=== PATIENT | female | born 1990 | race Hispanic/Latino ===

== ENCOUNTER 2018-07-05 23:51 | Emergency (ER) | payer SELFPAY ==
[2018-07-06] MEDS ORDERED: Metoprolol Tartrate 5 MG/5 ML VIAL ONE (00:43)
[2018-07-06 01:09] LABS: #Eosinphils 0.2 thou/uL (0.0-0.7); #Monocytes 0.4 thou/uL (0.11-0.59); #Neutrophils 4.6 thou/uL (1.40-6.50); %Eosinophils 2.3 % (0.0-10.0); %Lymphocytes 27.7 % (21.0-51.0); %Monocytes 6.2 % (0.0-10.0); %Neutrophils 63.9 % (42.0-75.0); Hemoglobin 13.1 g/dL (12.0-16.0); Mean Corpuscular HGB CONC 32.9 g/dL (32.0-36.0); Mean Corpuscular Hemoglobin 28.3 pg (27.0-31.0); Mean Corpuscular Volume 86.2 fL (78.0-98.0); Mean Platelet Volume 9.9 fL (7.4-10.4); Platelet Count 200 thou/uL (130-400); RBC Distribution Width 12.7 % (11.5-14.5); Red Blood Cell (RBC) Count 4.63 mill/uL (4.20-5.40); White Blood Cell (WBC) Count 7.2 thou/uL (4.8-10.8)
[2018-07-06 01:27] LABS: Chloride 103 mmol/L (98-107)
[2018-07-06 01:27] LABS: Pregnancy Test - Urine (BHCG) Negative (Negative); Pregu Control Background? CLEAR/WHITE (CLR/WHITE); Pregu Control Bar Appear? YES (CONTROL BAR)
[2018-07-06 01:28] LABS: Calcium 9.2 mg/dL (7.8-10.44); Potassium 3.3 mmol/L (3.5-5.1); Sodium 138 mmol/L (136-145)
[2018-07-06 01:29] LABS: Globulin 3.3 g/dL (2.4-3.5); Glucose 119 mg/dL (70-105); Protein, Total 7.3 g/dL (6.0-8.3)
[2018-07-06 01:29] LABS: Specific Gravity 1.007 (1.002-1.036)
[2018-07-06 01:30] LABS: Carbon Dioxide 26 mmol/L (22-29)
[2018-07-06 01:31] LABS: Bilirubin, Total 0.2 mg/dL (0.2-1.2)
[2018-07-06 01:32] LABS: Alkaline Phosphatase 119 U/L (40-150); Calc. Creatinine Clearance 0 mL/min (70-130); Estimated GFR-MDRD 89
[2018-07-06 01:33] LABS: BUN (Urea Nitrogen) 15 mg/dL (7.0-18.7)
[2018-07-06 01:34] LABS: AST (SGOT) 34 U/L (5-34)
[2018-07-06 01:35] LABS: ALT (SGPT) 31 U/L (8-55)
[2018-07-06 01:37] LABS: Anion Gap 12 mmol/L (10-20)
[2018-07-06 01:40] LABS: Amphetamine Not Detected (NotDetected); Barbiturates Screen Not Detected (NotDetected); Benzodiazepine Screen Not Detected (NotDetected); Cocaine Metabolite Screen Not Detected (NotDetected); Medtox Control Line Valid? VALID (VALID); Medtox Reader # READER 1; Methadone Not Detected (NotDetected); Methamphetamine Not Detected (NotDetected); Opiate Screen Not Detected (NotDetected); Oxycodone Screen Not Detected (NotDetected); Phencyclidine (PCP) Not Detected (NotDetected); THC/Cannabinoid Screen Not Detected (NotDetected); Tricyclic Screen Not Detected (NotDetected)
[2018-07-06] MEDS ORDERED: Aspirin Chewable 81 MG TAB ONE (01:44)
--- NOTE | 2018-07-06 08:39 | RAD ---
CHEST 1 VIEW: INDICATION: Palpitations and shortness of breath. COMPARISON: None. FINDINGS: Lungs are clear. Heart size is normal. No acute osseous abnormality is evident. IMPRESSION: No acute cardiopulmonary abnormality. POS: BH
== END 2018-07-06 03:36 | disposition home or self-care (01) ==
LOC: ERS 23:51
DX: R00.2 Palpitations (principal)
CPT/HCPCS: 71045; 80053; 80306; 81025; 84443; 84484; 85025; 93005; 96361; 96374